=== PATIENT | female | born 1990 | race American Indian/Alaskan Native ===

== ENCOUNTER 2018-08-28 15:50 | Emergency (ER) | payer OTHER ==
--- NOTE | 2018-08-28 17:03 | Emergency Department Report ---
Chief Complaint: Skin/Abscess/Foreign Body Stated Complaint: INSPECT BITE Time Seen by Provider: 08/28/18 17:02 - HPI History of Present Illness: BLOOD IN STOOL PAIN LOWER BACK LMP 08/08 RX NONE PMH NONE PSH NONE CIG NONE ETOH NONE DRUGS NONE MSE COMPLETED MSE screening note: Focused history and physical exam performed. Due to findings the following was ordered: ED Disposition for MSE Condition: Stable
[2018-08-28 17:07] VITALS: BP 111/69
[2018-08-28 18:46] LABS: Hematocrit 42.4 % (30.3-42.9); Mean Corpuscular HGB Conc 33 % (30-34); Mean Corpuscular Volume 100 fl (79-97); Platelet Count 224 K/mm3 (140-440); Red Blood Count 4.24 M/mm3 (3.65-5.03)
[2018-08-28 19:04] LABS: BUN/Creatinine Ratio 11; Blood Urea Nitrogen 9 mg/dL (7-17); Calcium 8.7 mg/dL (8.4-10.2); Hemolysis Index 18
[2018-08-28 19:07] LABS: Bilirubin,Urine NEG (Negative); Blood,Urine NEG (Negative); Color,Urine Yellow (Yellow); Mucus,Urine FEW /HPF; Protein,Urine <15 mg/dL mg/dL (Negative); WBC,Urine < 1.0 /HPF (0.0-6.0)
[2018-08-28 19:24] LABS: HCG Qualitative,Urine Negative (Negative)
--- NOTE | 2018-08-28 20:34 | Emergency Department Report ---
ED Back Pain/Injury HPI - General Chief Complaint: Skin/Abscess/Foreign Body Stated Complaint: INSPECT BITE Time Seen by Provider: 08/28/18 17:02 Source: patient Mode of arrival: Ambulatory Limitations: No Limitations - History of Present Illness Initial Comments: Patient is a 28-year-old -[place] female with no past medical history who presents to the ED with complaint of acute onset persistent low back pain, and itchy mildly erythematous rash on the lower back after being bitten by an insect 2 days ago. Patient says that she is currently taking Benadryl and some steroids for this but that her lower back and has worsened. Patient admits to heavy lifting at work as well. Patient also complains of intermittent bright red blood with hard stool in the last 12 hours. The patient states that she's only had one incident where it was bright red blood into external hemorrhoids that she has. Patient denies fever, chills, nausea, vomiting, abdominal pain, dizziness, dysuria, urinary frequency and urgency, diarrhea, syncope or dizziness. MD Complaint: back pain, other (insect bite of lower back; diffuse lower back pain; hemorrhoids) -: Sudden, days(s) (2) Similar Symptoms Previously: No Place: home Radiation: none Severity: moderate Severity scale (0 -10): 4 Quality: burning, aching Consistency: constant Improves With: none Worsens With: none Context: while lifting, other (insect bite, heavy lifting) Associated Symptoms: rash. denies: confusion, weakness, chest pain, numbness, difficulty walking, cough, difficulty urinating, diaphoresis, incontinence, fever/chills, constipation, headaches, abdominal pain, loss of appetite, malaise, nausea/vomiting, seizure, shortness of breath, syncope Treatments Prior to Arrival: cold therapy - Related Data Previous Rx's Medication Instructions Recorded Last Taken Type Cyclobenzaprine [Flexeril] 10 mg PO Q8H PRN #12 tablet 08/28/18 Unknown Rx Ketorolac [Toradol] 10 mg PO Q6H PRN #20 tablet 08/28/18 Unknown Rx Allergies Allergy/AdvReac Type Severity Reaction Status Date / Time No Known Allergies Allergy Unverified 08/28/18 15:53 ED Review of Systems ROS: Stated complaint: INSPECT BITE Other details as noted in HPI Comment: All other systems reviewed and negative Constitutional: no symptoms reported, see HPI. denies: chills, fever, malaise Eyes: as per HPI. denies: eye pain, eye discharge, vision change ENT: as per HPI. denies: ear pain, throat pain, dental pain, hearing loss, congestion Respiratory: no symptoms reported, see HPI. denies: cough, shortness of breath, SOB with exertion, SOB at rest Cardiovascular: as per HPI. denies: chest pain, palpitations, dyspnea on exertion, syncope, paroxysmal nocturnal dyspnea Endocrine: no symptoms reported, see HPI. denies: excessive sweating, flushing, intolerance to cold, increased hunger, increased thirst, increased urine Gastrointestinal: as per HPI. denies: abdominal pain, nausea, vomiting, diarrhea, constipation, hematemesis, hematochezia Genitourinary: as per HPI. denies: urgency, dysuria, hematuria, dyspareunia Musculoskeletal: as per HPI, back pain, arthralgia, myalgia, other (Mildly erythematous lumbosacral rash with mild pain). denies: joint swelling Skin: as per HPI, rash (erythematous rash on lumbosacral area), change in color, pruritus. denies: lesions, change in hair/nails Neurological: as per HPI. denies: headache, weakness, paresthesias, abnormal gait, vertigo Psychiatric: as per HPI Hematological/Lymphatic: as per HPI ED Past Medical Hx - Past Medical History Previous Medical History?: No - Surgical History Past Surgical History?: No - Social History Smoking Status: Never Smoker Substance Use Type: None - Medications Home Medications: Home Medications Medication Instructions Recorded Confirmed Last Taken Type Cyclobenzaprine [Flexeril] 10 mg PO Q8H PRN #12 tablet 08/28/18 Unknown Rx Ketorolac [Toradol] 10 mg PO Q6H PRN #20 tablet 08/28/18 Unknown Rx ED Physical Exam - General Limitations: No Limitations General appearance: alert, in no apparent distress - Head Head exam: Present: atraumatic, normocephalic, normal inspection - Eye Eye exam: Present: normal appearance, PERRL, EOMI. Absent: conjunctival injection, periorbital swelling, periorbital tenderness Pupils: Present: normal accommodation - ENT ENT exam: Present: normal exam, normal orophraynx, mucous membranes moist, TM's normal bilaterally, normal external ear exam - Neck Neck exam: Present: normal inspection, full ROM - Respiratory Respiratory exam: Present: normal lung sounds bilaterally. Absent: respiratory distress, wheezes, rales, chest wall tenderness, accessory muscle use, decreased breath sounds - Cardiovascular Cardiovascular Exam: Present: regular rate, normal rhythm, normal heart sounds - GI/Abdominal GI/Abdominal exam: Present: soft. Absent: distended, tenderness, guarding, rebound, hyperactive bowel sounds, hypoactive bowel sounds, organomegaly - Rectal Rectal exam: Present: normal inspection, normal rectal tone, hemorrhoids. Absent: heme (+) stool, bloody stool, fecal impaction, tenderness - Extremities Exam Extremities exam: Present: normal inspection, full ROM, normal capillary refill - Back Exam Back exam: Present: normal inspection, tenderness (mild lumbosacral paraspinal tenderness), muscle spasm, paraspinal tenderness, rash noted (Mildly erythematous rash on the paraspinal sacral area. No localized tenderness). Absent: CVA tenderness (R), CVA tenderness (L) - Neurological Exam Neurological exam: Present: alert, oriented X3, CN II-XII intact, normal gait, reflexes normal - Psychiatric Psychiatric exam: Present: normal affect, normal mood - Skin Skin exam: Present: warm, dry, intact, rash (Mildly erythematous rash on sacral area with no tenderness), erythema, urticaria. Absent: vesicles, pallor, abrasion, ecchymosis ED Course Vital Signs 08/28/18 17:06 Temperature 99.5 F Pulse Rate 68 Respiratory 18 Rate Blood Pressure 111/69 [Right] O2 Sat by Pulse 99 Oximetry - Reevaluation(s) Reevaluation #1: 08/28/18 20:38 Patient is alert and oriented 3 and is not in distress. Lab test results were reviewed and are unremarkable. Patient's physical exam is unremarkable except for mild erythematous rash on the lumbosacral area. Patient discharged home and advised to follow up with her primary care physician in 3-5 days for reevaluation. Patient also educated on proper and lifestyle changes to prevent worsening of external hemorrhoids. ED Medical Decision Making - Lab Data Result diagrams: 08/28/18 18:28 08/28/18 18:28 - Differential Diagnosis Insect bite allergy, Cellulitis, muscle spasm of back, hemorrhoids Critical care attestation.: If time is entered above; I have spent that time in minutes in the direct care of this critically ill patient, excluding procedure time. ED Disposition Clinical Impression: Allergic to insect bites and stings, Spasm of muscle of lower back, External hemorrhoids Disposition: TO HOME OR SELFCARE Is pt being admited?: No Does the pt Need Aspirin: No Condition: Stable Instructions: Muscle Spasm (ED), Insect Bite or Sting (ED), Hemorrhoids (ED), Rectal Bleeding (ED) Additional Instructions: Take medications with food, drink plenty of fluids, and incorporate great amounts of fiber in your diet. Follow-up with your primary care physician in 5- 7 days for reevaluation. Prescriptions: Cyclobenzaprine [Flexeril] 10 mg PO Q8H PRN #12 tablet PRN Reason: Spasms Ketorolac [Toradol] 10 mg PO Q6H PRN #20 tablet PRN Reason: Pain Referrals: LI EVANS MD [Primary Care Provider] - 3-5 Days Time of Disposition: 20:45 Print Language: PORTUGUESE
== END 2018-08-28 21:00 | disposition home or self-care (01) ==
LOC: ED 15:50
DX: M62.830 Muscle spasm of back (principal); K64.4 Residual hemorrhoidal skin tags; Z91.038 Other insect allergy status
CPT/HCPCS: 36415; 80048; 81001; 81025; 85027